=== PATIENT | male | born 1990 | race Hispanic/Latino ===

== ENCOUNTER 2018-08-21 22:27 | Emergency (ER) | payer SELFPAY ==
[~2018-08-21] VITALS: Ht 172.7 cm; Wt 68.0 kg
[2018-08-21 22:58] LABS: MEAN CELL VOLUME 91.6 fL CALC (80.0-100.0); MEAN CORPUSCULAR HGB 30.5 pG CALC (26.0-32.0); MEAN CORPUSCULAR HGB CONC 33.3 g/L CALC (32.0-36.0); RED BLOOD COUNT 5.24 mill/uL (4.70-6.10); RED CELL DISTRI WIDTH 12.7 % (11.5-15.5)
[2018-08-21 23:00] LABS: ALBUMIN 4.5 g/dL (3.2-5.0); ALKALINE PHOSPHATASE 59 u/l (38-126); ANION GAP 21 (6-22 (CALC)); BILIRUBIN, TOTAL 0.5 mg/dL (0.0-1.4); BUN 8 mg/dL (9-20); BUN/CREATININE RATIO 8 (12-20 (CALC)); CARBON DIOXIDE 23 mmol/l (22-30); CHLORIDE 102 mmol/l (95-108); CREATININE 1.1 mg/dL (0.7-1.3); GFR > 60 ML/MIN (>=60 (CALC)); GFR FOR AFR.AMER. > 60 ML/MIN (>=60 (CALC)); POTASSIUM 3.1 mmol/l (3.5-5.1); SGOT/AST 151 u/l (17-59); SODIUM 143 mmol/l (137-146); TOTAL PROTEIN 7.3 g/dL (6.3-8.2)
[2018-08-21 23:07] LABS: BARBITURATES NEGATIVE (NEGATIVE); COCAINE NEGATIVE (NEGATIVE); METHADONE NEGATIVE (NEGATIVE); OXCYCODONE NEGATIVE (NEGATIVE); TETRAHYDROCANNABIONOL NEGATIVE (NEGATIVE); TRICYLIC ANTIDEPRESSANTS NEGATIVE (NEGATIVE)
[2018-08-21 23:09] LABS: ETHYL ALCOHOL 253 mg/dl (0-30)
[2018-08-21 23:13] LABS: IMMATURE GRANULOCYTES 0.8 % (0.0-5.0); NEUT# 1.61 thou/uL (1.82-7.42)
[2018-08-21 23:37] VITALS: BP 43/31
== END 2018-08-21 23:30 | disposition short-term general hospital (02) | DRG 605 ==
LOC: EDBD 22:27 → ED 22:27
PROVIDERS: Emergency Medicine
PROC: 0T9B70Z Drainage of Bladder with Drainage Device, Via Natural or Artificial Opening (ICD-10-PCS; principal; 2018-08-21)
PROC: 0BH17EZ Insertion of Endotracheal Airway into Trachea, Via Natural or Artificial Opening (ICD-10-PCS; 2018-08-21)
DX: S01.80XA Unspecified open wound of other part of head, initial encounter (principal); Y92.009 Unspecified place in unspecified non-institutional (private) residence as the place of occurrence of the external cause
CPT/HCPCS: J1265